=== PATIENT | male | born 1955 | race Caucasian/White ===

== ENCOUNTER 2018-09-22 13:57 | Emergency (ER) | payer OTHER ==
[2018-09-22] MEDS ORDERED: SODIUM CHLORIDE 0.9% 1,000 ML IV ONE (14:57)
--- NOTE | 2018-09-22 15:00 | ED Physician Documentation ---
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 He does have abdominal pain which she has had persistent for more than a year and he is on pain medication chronically for this. He denies any distention of his lower abdomen and he denies any nausea vomiting or diarrhea. He is chronically constipated from narcotic use. Review of Systems Constitutional: reports: Fever, Myalgias, Fatigue Eyes: denies: Decreased vision Ears: denies: Ear pain Nose: denies: Rhinorrhea / runny nose, Congestion Throat: denies: Sore throat Cardiac: denies: Chest pain / pressure, Palpitations Respiratory: denies: Dyspnea, Cough GI: reports: Abdominal Pain, Diarrhea. denies: Nausea, Vomiting : denies: Dysuria, Frequency Skin: denies: Rash Musculoskeletal: denies: Neck pain, Back pain, Extremity pain Neurologic: reports: Generalized weakness. 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, is currently in a trial treatment for those lung nodules - Allergies Allergies/Adverse Reactions: Allergies Allergy/AdvReac Type Severity Reaction Status Date / Time No Known Drug Allergies Allergy Verified 09/22/18 14:33 - Social History Does the pt smoke?: No Smoking Status: Never smoker Does the pt drink ETOH?: No Does the pt have substance abuse?: No PD ED PE NORMAL - Vitals Vital signs reviewed: Yes (tachy and hypertensive ) - General General: Alert and oriented X 3, No acute distress, Well developed/nourished - HEENT HEENT: Atraumatic, PERRL, EOMI, Other (dry mucous membranes ) - Neck Neck: Supple, no meningeal sign, No bony TTP - Cardiac Cardiac: No murmur, Other (tachy to 110) - Respiratory Respiratory: No respiratory distress, Clear bilaterally - Abdomen Abdomen: Soft, Other (mild general tenderness without gaurding or rebound) - Back Back: No CVA TTP, No spinal TTP - Derm Derm: Normal color, Warm and dry, No rash - Extremities Extremities: No deformity, No edema - Neuro Neuro: Alert and oriented X 3, creative manager 2-12 intact Eye Opening: Spontaneous Motor: Obeys Commands Verbal: Oriented GCS Score: 15 - Psych Psych: Normal mood, Normal affect Results - Vitals Vitals: Vital Signs - 24 hr 09/22/18 09/22/18 14:03 16:26 Temperature 37 C Heart Rate 113 H 95 Respiratory 18 16 Rate Blood Pressure 140/88 H 152/101 H O2 Saturation 96 99 Oxygen O2 Source Room air - Labs Labs: Laboratory Tests 09/22/18 09/22/18 09/22/18 15:30 15:30 15:30 WBC 14.6 H RBC 4.28 L Hgb 13.1 L Hct 38.7 L MCV 90.4 MCH 30.7 MCHC 34.0 RDW 13.3 Plt Count 147 MPV 8.7 Neut # (Auto) 13.1 H Lymph # (Auto) 0.2 L [place] # (Auto) 1.2 H Eos # (Auto) 0.0 Baso # (Auto) 0.0 Absolute Nucleated RBC 0.00 Nucleated RBC % 0.0 Sodium 130 L Potassium 4.0 Chloride 95 L Carbon Dioxide 25 Anion Gap 10.0 BUN 16 Creatinine 0.6 Estimated GFR (MDRD) 137 Glucose 141 H Calcium 8.8 Total Bilirubin 0.6 AST 36 ALT 28 Alkaline Phosphatase 67 Troponin I < 0.04 Total Protein 8.2 Albumin 3.9 Globulin 4.3 H Albumin/Globulin Ratio 0.9 L Lipase 20 L Urine Color Urine Clarity Urine pH Ur Specific [place] Urine Protein Urine Glucose (UA) Urine Ketones Urine Occult Blood Urine Nitrite Urine Bilirubin Urine Urobilinogen Ur Leukocyte Esterase Urine RBC Urine WBC Ur Squamous Epith Cells Urine Bacteria Ur Microscopic Review Urine Culture Comments 09/22/18 16:18 WBC RBC Hgb Hct MCV MCH MCHC RDW Plt Count MPV Neut # (Auto) Lymph # (Auto) [place] # (Auto) Eos # (Auto) Baso # (Auto) Absolute Nucleated RBC Nucleated RBC % Sodium Potassium Chloride Carbon Dioxide Anion Gap BUN Creatinine Estimated GFR (MDRD) Glucose Calcium Total Bilirubin AST ALT Alkaline Phosphatase Troponin I Total Protein Albumin Globulin Albumin/Globulin Ratio Lipase Urine Color YELLOW Urine Clarity CLEAR Urine pH 7.0 Ur Specific [place] 1.010 Urine Protein NEGATIVE Urine Glucose (UA) NEGATIVE Urine Ketones 15 H Urine Occult Blood SMALL H Urine Nitrite NEGATIVE Urine Bilirubin NEGATIVE Urine Urobilinogen 0.2 (NORMAL) Ur Leukocyte Esterase NEGATIVE Urine RBC 6-10 H Urine WBC 0-3 Ur Squamous Epith Cells RARE Squamous Urine Bacteria None Seen Ur Microscopic Review INDICATED Urine Culture Comments NOT INDICATED Procedures - IVC sono (time) 1455 Bedside IVC sono: IVC measures (cm) (1.07), IVC collapsed c insp (cm) (complete), Dehydration (est >1 liter deficit) PD MEDICAL DECISION MAKING - ED course Complexity details: considered differential, d/w patient, d/w family ED course: 62-year-old male undergoing therapy for a salivary duct tumor is on a experi mental protocol with a small molecule he has infused once a week. He has developed abdominal pain that is not new and he has a decreased urine volume. He is concerned that he is not able to urinate and is only passing a small amount of urine. He is exhausted from a car trip back up here and moving. An IV is begun he is administered saline. Departure - Departure Disposition: 01 Home, Self Care Clinical Impression: Dehydration Condition: Stable Instructions: ED Dehydration Follow-Up: Your, doctor [Other]
[2018-09-22 16:01] LABS: BASOPHILS % (AUTO) 0.2 %; EOSINOPHILS % (AUTO) 0.2 %; HGB - HEMOGLOBIN 13.1 g/dL (14.0-18.0); LYMPHOCYTES # (AUTO) 0.2 10^3/uL (1.5-3.5); LYMPHOCYTES % (AUTO) 1.6 %; MEAN CORPUSCULAR HEMOGLOBIN 30.7 pg (27.0-31.0); MEAN CORPUSCULAR VOLUME 90.4 fL (80.0-94.0); MEAN PLATELET VOLUME 8.7 fL (7.4-11.4); MONOCYTES # (AUTO) 1.2 10^3/uL (0.0-1.0); MONOCYTES % (AUTO) 8.3 %; NEUTROPHILS # (AUTO) 13.1 10^3/uL (1.5-6.6); NEUTROPHILS % (AUTO) 89.7 %; PLT - PLATELET COUNT 147 10^3/uL (130-450); RED BLOOD COUNT 4.28 10^6/uL (4.70-6.10); RED CELL DISTRIBUTION WIDTH 13.3 % (12.0-15.0); WHITE BLOOD COUNT 14.6 x10^3/uL (4.8-10.8)
[2018-09-22 16:19] LABS: ALBUMIN 3.9 g/dL (3.2-5.5); ALBUMIN/GLOBULIN RATIO 0.9 (1.0-2.2); BILIRUBIN,TOTAL 0.6 mg/dL (0.2-1.0); CALCIUM 8.8 mg/dL (8.5-10.3); CREATININE 0.6 mg/dL (0.6-1.2); TOTAL PROTEIN 8.2 g/dL (6.7-8.2)
[2018-09-22 16:40] LABS: BILIRUBIN,URINE NEGATIVE (NEGATIVE); GLUCOSE, URINE (UA) NEGATIVE (NEGATIVE); KETONES,URINE (UA) 15 mg/dL (NEGATIVE); LEUKOCYTE ESTERASE, URINE NEGATIVE (NEGATIVE); NITRITE,URINE NEGATIVE (NEGATIVE); OCCULT BLOOD,URINE SMALL (NEGATIVE); PROTEIN,URINE NEGATIVE (NEGATIVE); UROBILINOGEN,URINE 0.2 (NORMAL) E.U./dL (NORMAL)
[2018-09-22 16:47] LABS: CLARITY,URINE CLEAR (CLEAR)
[2018-09-22 16:48] LABS: BACTERIA,URINE None Seen /HPF (None Seen); SQUAMOUS EPITHELIAL CELL,UR RARE Squamous (<= Few)
[2018-09-22 17:32] VITALS: BP 133/93
== END 2018-09-22 17:33 | disposition home or self-care (01) ==
LOC: ED 13:57
DX: E86.0 Dehydration (principal); R39.198 Other difficulties with micturition; C08.9 Malignant neoplasm of major salivary gland, unspecified; C78.00 Secondary malignant neoplasm of unspecified lung
CPT/HCPCS: 36415; 80053; 81001; 81003; 83690; 84484; 85025; 87086; 96360; 99283

== ENCOUNTER 2018-09-24 10:52 | Observation (INO) | payer OTHER ==
[2018-09-24 11:48] LABS: BASOPHILS % (AUTO) 0.1 %; HGB - HEMOGLOBIN 13.9 g/dL (14.0-18.0); LYMPHOCYTES # (AUTO) 0.3 10^3/uL (1.5-3.5); MEAN CORPUSCULAR HEMOGLOBIN 30.3 pg (27.0-31.0); MEAN CORPUSCULAR HGB CONC 33.3 g/dL (32.0-36.0); MEAN CORPUSCULAR VOLUME 91.2 fL (80.0-94.0); MEAN PLATELET VOLUME 8.5 fL (7.4-11.4); MONOCYTES # (AUTO) 0.6 10^3/uL (0.0-1.0); MONOCYTES % (AUTO) 4.1 %; NEUTROPHILS # (AUTO) 13.6 10^3/uL (1.5-6.6); NEUTROPHILS % (AUTO) 93.8 %; PLT - PLATELET COUNT 181 10^3/uL (130-450); RED BLOOD COUNT 4.57 10^6/uL (4.70-6.10); RED CELL DISTRIBUTION WIDTH 13.5 % (12.0-15.0); WHITE BLOOD COUNT 14.5 x10^3/uL (4.8-10.8)
[2018-09-24 11:57] LABS: ALBUMIN/GLOBULIN RATIO 0.8 (1.0-2.2); BILIRUBIN,TOTAL 0.9 mg/dL (0.2-1.0); CALCIUM 9.2 mg/dL (8.5-10.3); CREATININE 1.1 mg/dL (0.6-1.2); TOTAL PROTEIN 9.3 g/dL (6.7-8.2)
--- NOTE | 2018-09-24 12:00 | ED Physician Documentation ---
PD HPI ABD PAIN - Stated complaint Stated Complaint: ABDOMINAL PAIN - Chief complaint Chief Complaint: Abd Pain - History obtained from History obtained from: Patient - History of Present Illness Timing - onset: Last night (The patient has had some abdominal fullness and lower abdominal cramping and pains with noting decreased urination though a feeling of bladder fullness over the last several days. He states he does have problems with constipation and not had a bowel movement since Monday which is 3 days ago. He was seen here 2 days ago with the symptoms though not so much the belly pain. He was felt to be dehydrated and had some IV fluids given. His urine did not show signs of infection. He continued same symptoms and then last night had an abrupt onset of right lower quadrant abdominal pain radiating to the back and this has persisted pretty significantly since the middle of the night. He took extra oral medication and says it somewhat controlled at this point. He declines further pain medicine here.) Timing - duration: Hours (7-8) Timing - details: Abrupt onset (He had an abrupt worsening of pain in the right lower quadrant last night and this has persisted. This is different and in addition to his general crampy pains from constipation.) Quality: Cramping (general for several days), Sharp (RLQ today) Location: RLQ Radiation: Right flank Worsened by: Position, Palpation. No: Breathing Associated symptoms: Constipation. No: Fever, Nausea, Vomiting, Diarrhea, Hematochezia Similar symptoms before: Has not had sx before (not this sharp abrupt pain; has had fullness/cramps with constipation in the past.) Recently seen: Emergency Dept Review of Systems Constitutional: denies: Fever Nose: denies: Rhinorrhea / runny nose, Congestion Throat: denies: Sore throat Respiratory: denies: Cough GI: reports: Abdominal Pain, Constipation. denies: Nausea, Vomiting, Diarrhea, Bloody / black stool : denies: Dysuria, Frequency PD PAST MEDICAL HISTORY - Past Medical History Cardiovascular: None Respiratory: None Neuro: None GI: Chronic constipation - Present Medications Home Medications: Ambulatory Orders Medication Instructions Recorded Confirmed Bisacodyl Supp [Dulcolax Supp] 10 mg NC DAILY PRN 09/24/18 09/24/18 Calcium Polycarbophil [Fiber-Lax] 1,875 mg PO DAILY 09/24/18 09/24/18 Ergocalciferol (Vitamin D2) 50 mcg PO DAILY 09/24/18 09/24/18 [Vitamin D2] Lisinopril 10 mg PO DAILY 09/24/18 09/24/18 Morphine Sulfate [Ms Contin] 0 mg PO Q8H 09/24/18 09/24/18 Naproxen Sodium [Aleve] 220 - 440 mg PO DAILY PRN 09/24/18 09/24/18 Polyethylene Glycol 3350 [Miralax] 17 gm PO DAILY PRN 09/24/18 09/24/18 Senna [Senokot] 8.6 mg PO DAILY 09/24/18 09/24/18 oxyCODONE [Roxicodone] 10 - 40 mg PO Q6H PRN 09/24/18 09/24/18 - Allergies Allergies/Adverse Reactions: Allergies Allergy/AdvReac Type Severity Reaction Status Date / Time No Known Drug Allergies Allergy Verified 09/24/18 10:59 - Social History Does the pt smoke?: No Smoking Status: Never smoker Does the pt drink ETOH?: No Does the pt have substance abuse?: No PD ED PE NORMAL - Vitals Vital signs reviewed: Yes - General General: Alert and oriented X 3, Well developed/nourished - HEENT HEENT: Pharynx benign - Neck Neck: Supple, no meningeal sign, No adenopathy - Cardiac Cardiac: RRR, No murmur - Respiratory Respiratory: Clear bilaterally - Abdomen Abdomen: Soft, Other (His abdomen is moderately generally distended with some tenderness diffusely. He is most tender in the right lower quadrant with localized guarding. Bowel sounds are increased and percussion of the abdomen is tympanitic. There is some mild right CVA tenderness. Femoral pulses are symmetric and normal. The legs have good color and capillary refill and there is good pulses in the feet.) - Male Male : Other (normal genitalia without tenderness. No scrotal swelling. ) - Rectal Rectal: Other (There are no hemorrhoids felt. Digital exam showed a fairly empty vault with some brown stool is guaiac negative. The prostate does not feel enlarged.) - Back Back: No CVA TTP - Derm Derm: Normal color, Warm and dry - Extremities Extremities: No tenderness to palpate, Normal ROM s pain, No edema, No calf tenderness / cord - Neuro Neuro: Alert and oriented X 3, No motor deficit, Normal speech Results - Vitals Vitals: Vital Signs - 24 hr 09/24/18 09/24/18 09/24/18 10:57 12:15 14:21 Temperature 36.1 C L Heart Rate 111 H 108 H 106 H Respiratory 20 16 18 Rate Blood Pressure 91/65 109/76 119/84 H O2 Saturation 97 98 96 09/24/18 17:37 Temperature Heart Rate 92 Respiratory 18 Rate Blood Pressure 115/82 H O2 Saturation 94 Oxygen O2 Source Room air - Labs Labs: Laboratory Tests 09/24/18 09/24/18 09/24/18 11:37 11:37 12:01 WBC 14.5 H RBC 4.57 L Hgb 13.9 L Hct 41.7 L MCV 91.2 MCH 30.3 MCHC 33.3 RDW 13.5 Plt Count 181 MPV 8.5 Neut # (Auto) 13.6 H Lymph # (Auto) 0.3 L [place] # (Auto) 0.6 Eos # (Auto) 0.0 Baso # (Auto) 0.0 Absolute Nucleated RBC 0.00 Nucleated RBC % 0.0 Sodium 135 Potassium 4.3 Chloride 99 L Carbon Dioxide 25 Anion Gap 11.0 BUN 17 Creatinine 1.1 Estimated GFR (MDRD) 68 L Glucose 132 H Calcium 9.2 Total Bilirubin 0.9 AST 39 ALT 30 Alkaline Phosphatase 81 Total Protein 9.3 H Albumin 4.0 Globulin 5.3 H Albumin/Globulin Ratio 0.8 L Lipase 19 L Urine Color DARK YELLOW Urine Clarity HAZY Urine pH 6.0 Ur Specific [place] 1.025 Urine Protein 30 H Urine Glucose (UA) NEGATIVE Urine Ketones 40 H Urine Occult Blood TRACE-INTA Urine Nitrite NEGATIVE Urine Bilirubin NEGATIVE Urine Urobilinogen 0.2 (NORMAL) Ur Leukocyte Esterase NEGATIVE Urine RBC 0-5 Urine WBC 0-3 Ur Squamous Epith Cells RARE Squamous Urine Bacteria Rare Urine Casts 3-5 Granular Casts Urine Mucus Few Strands Ur Microscopic Review INDICATED Urine Culture Comments NOT INDICATED PD MEDICAL DECISION MAKING - ED course Complexity details: reviewed old records, reviewed results (He does not have constipation with a lot of stool in the right lower quadrant particularly in an obstruction pattern mildly in the small bowel. However there is enlargement and swelling of the appendix consistent with acute appendicitis.), re-evaluated patient (The patient is apprised of his results. He is preferring local treatment with general surgery here. I will contact the [facility] to update them.He last had Jell-O at 8 this morning. He had a sip of water about an hour ago.), considered differential (He does have history of constipation with pains but now has localized right lower quadrant pain. Consider diverticulitis, appendicitis, kidney stone, UTI, local perforation from constipation or bowel obstruction.), d/w patient, d/w database reporting consultant (I did inform Dr. Cantu at the [facility] who is on-call about the appendicitis. Since the patient is on a cancer study drug, all medical problems need to get reported to them.), other (Consult surgery Dr. Bravo.) Departure - Departure Disposition: ED Transfer to [facility] Clinical Impression: Abdominal pain Qualifiers: Abdominal location: right lower quadrant Qualified Code(s): R10.31 - Right lower quadrant pain Appendicitis Qualifiers: Appendicitis type: acute appendicitis Acute appendicitis type: with localized peritonitis Appendicitis gangrene presence: without gangrene Appendicitis perforation presence: without perforation Appendicitis abscess presence: without abscess Qualified Code(s): K35.30 - Acute appendicitis with localized peritonitis, without perforation or gangrene Constipation Qualifiers: Constipation type: drug induced constipation Qualified Code(s): K59.03 - Drug induced constipation Condition: Stable Record reviewed to determine appropriate education?: Yes Discharge Date/Time: 09/24/18 18:59
[2018-09-24 12:21] LABS: GLUCOSE, URINE (UA) NEGATIVE (NEGATIVE); KETONES,URINE (UA) 40 mg/dL (NEGATIVE); LEUKOCYTE ESTERASE, URINE NEGATIVE (NEGATIVE); NITRITE,URINE NEGATIVE (NEGATIVE); OCCULT BLOOD,URINE TRACE-INTA (NEGATIVE); PROTEIN,URINE 30 mg/dL (NEGATIVE); UROBILINOGEN,URINE 0.2 (NORMAL) E.U./dL (NORMAL)
[2018-09-24 12:25] LABS: BILIRUBIN,URINE NEGATIVE (NEGATIVE); CLARITY,URINE HAZY (CLEAR); ICTOTEST,URINE NEGATIVE
[2018-09-24 12:32] LABS: BACTERIA,URINE Rare /HPF (None Seen); CASTS, URINE 3-5 Granular Casts /LPF; MUCUS,URINE Few Strands; RBC,URINE 0-5 /HPF (0-5); SQUAMOUS EPITHELIAL CELL,UR RARE Squamous (<= Few)
[2018-09-24] MEDS ORDERED: MINERAL OIL ENEMA 133 ML BOTTLE RC STA (13:18)
[2018-09-24] MEDS ORDERED: METHYLNALTREXONE 12 MG/0.6 ML VIAL SUBQ ONE (13:43)
--- NOTE | 2018-09-24 13:53 | CT Report ---
Reason: abd pain abrupt last night Procedure Date: 09/24/2018 Accession Number: [id number] / [id number] Procedure: CT - Abdomen/Pelvis WO CPT Code: FULL RESULT: EXAM: CT ABDOMEN AND PELVIS (CT KUB) EXAM DATE: 09/24/2018 01:05 PM. CLINICAL HISTORY: Abdominal pain abrupt last night. Pain in the bladder area. COMPARISONS: None. TECHNIQUE: Routine axial helical CT imaging was performed through the abdomen and pelvis without IV contrast. Reconstructions: Coronal and sagittal. In accordance with CT protocol optimization, one or more of the following dose reduction techniques were utilized for this exam: automated exposure control, adjustment of mA and/or KV based on patient size, or use of iterative reconstructive technique. FINDINGS: Lung Bases: There are multiple bilateral pulmonary nodules ranging in size from several millimeters, up to the largest measuring 3.2 cm in size in the left lower lung. What appears to be the lower margin of drowned lung segment is noted medial posterior right lower lung, associated with staple lines. There is pleural-based mass and/or thickening noted in the medial posterior costophrenic angle, contiguous with this process. Right Kidney/Ureter: No stones, hydronephrosis, or hydroureter. No perinephric fat stranding. Left Kidney/Ureter: No stones, hydronephrosis, or hydroureter. No perinephric fat stranding. Other Solid Organs: Noncontrast images of the solid organs are grossly unremarkable. Pancreatic atrophy is noted. Gallbladder/Bile Ducts: Unremarkable. Peritoneal Cavity: There is moderate stool burden noted within the cecum and ascending colon. The appendix is enlarged measuring upwards of 12 mm in diameter and extends into the low right pelvis to the level of the bladder. There is a small amount of stranding inflammatory change along the appendix and possible small amount of free fluid in the right cul-de-sac. Pelvic Organs: No bladder stones or wall thickening. Noncontrast images of the visualized pelvic organs are unremarkable. Vasculature: Unremarkable. Other: There are displaced fractures of the right posterior lateral 9th and 10th ribs age indeterminate. There is callus formation along nondisplaced 8th rib fracture suggesting these fractures are subacute. No additional fractures appreciated. Fat-containing inguinal hernias are noted. IMPRESSION: 1. Findings consistent with uncomplicated appendicitis. No urinary tract stones or obstruction. 2. Multiple bilateral pulmonary nodules as described. Probable postsurgical changes noted in the right posterior costophrenic sulcus with an appearance of pleural-based mass and/or thickening/rounded atelectasis. Correlate with medical history. 3. Mildly displaced fractures of the right posterior lateral 9th and 10th ribs, possibly subacute. RADIA
[2018-09-24] MEDS ORDERED: ONDANSETRON 4 MG/2 ML VIAL IVP STA (14:06)
[2018-09-24] MEDS ORDERED: HYDROmorphone 1 MG/ML CARPUJECT IVP STA (14:06)
[2018-09-24] MEDS ORDERED: SODIUM CHLORIDE 0.9% 1,000 ML IV ONE (14:07)
[2018-09-24] MEDS ORDERED: cefOXitin 2 GM in SODIUM CHLORIDE 0.9% MINIBAG 100 ML IV STA (14:24)
--- NOTE | 2018-09-24 18:41 | ANESTHESIA ---
Pre-Anesthesia VS, & Labs - Diagnosis acute appendicitis - Procedure laparoscopic appendectomy Vital Signs: Temp Pulse Resp BP Pulse Ox 36.1 C L 92 18 115/82 H 94 09/24/18 10:57 09/24/18 17:37 09/24/18 17:37 09/24/18 17:37 09/24/18 17:37 Height 5 ft 10 in Weight (kg) 83.915 kg Body Mass Index 26.5 - NPO >8 hours - Lab Results Current Lab Results: Laboratory Tests 09/24/18 11:37: Sodium 135, Potassium 4.3, Chloride 99 L, Carbon Dioxide 25, Anion Gap 11.0, BUN 17, Creatinine 1.1, Estimated GFR (MDRD) 68 L, Glucose 132 H , Calcium 9.2, Total Bilirubin 0.9, AST 39, ALT 30, Alkaline Phosphatase 81, Total Protein 9.3 H, Albumin 4.0, Globulin 5.3 H, Albumin/Globulin Ratio 0.8 L, Lipase 19 L 09/24/18 11:37: WBC 14.5 H, RBC 4.57 L, Hgb 13.9 L, Hct 41.7 L, MCV 91.2, MCH 30.3, MCHC 33.3, RDW 13.5, Plt Count 181, MPV 8.5, Neut # (Auto) 13.6 H, Lymph # (Auto) 0.3 L, [place] # (Auto) 0.6, Eos # (Auto) 0.0, Baso # (Auto) 0.0, Absolute Nucleated RBC 0.00, Nucleated RBC % 0.0 Lab results reviewed: Yes Fish Bones: 09/24/18 11:37 09/24/18 11:37 Home Medications and Allergies Home Medications: Ambulatory Orders Bisacodyl Supp [Dulcolax Supp] 10 mg RI DAILY PRN 09/24/18 Calcium Polycarbophil [Fiber-Lax] 1,875 mg PO DAILY 09/24/18 Ergocalciferol (Vitamin D2) [Vitamin D2] 50 mcg PO DAILY 09/24/18 Lisinopril 10 mg PO DAILY 09/24/18 Morphine Sulfate [Ms Contin] 0 mg PO Q8H 09/24/18 Naproxen Sodium [Aleve] 220 - 440 mg PO DAILY PRN 09/24/18 Polyethylene Glycol 3350 [Miralax] 17 gm PO DAILY PRN 09/24/18 Senna [Senokot] 8.6 mg PO DAILY 09/24/18 oxyCODONE [Roxicodone] 10 - 40 mg PO Q6H PRN 09/24/18 Bisacodyl Supp [Dulcolax Supp] 10 mg RI DAILY PRN 09/24/18 Calcium Polycarbophil [Fiber-Lax] 1,875 mg PO DAILY 09/24/18 Ergocalciferol (Vitamin D2) [Vitamin D2] 50 mcg PO DAILY 09/24/18 Lisinopril 10 mg PO DAILY 09/24/18 Morphine Sulfate [Ms Contin] 0 mg PO Q8H 09/24/18 Naproxen Sodium [Aleve] 220 - 440 mg PO DAILY PRN 09/24/18 Polyethylene Glycol 3350 [Miralax] 17 gm PO DAILY PRN 09/24/18 Senna [Senokot] 8.6 mg PO DAILY 09/24/18 oxyCODONE [Roxicodone] 10 - 40 mg PO Q6H PRN 09/24/18 Allergies/Adverse Reactions: Allergies Allergy/AdvReac Type Severity Reaction Status Date / Time No Known Drug Allergies Allergy Verified 09/24/18 10:59 Anes History & Medical History - Anesthetic History Anesthesia Complications: reports: No previous complications Family history of Anesthesia Complications: Denies Family history of Malignant Hyperthermia: Denies - Medical History Cardiovascular: reports: None Pulmonary: reports: None Gastrointestinal: reports: Chronic constipation Neuro: reports: None Smoking Status: Never smoker - Surgical History Eyes Ears Nose Throat (EENT): Other (Radical neck @R) Cardiothoracic: Other (VATS) Exam General: Alert, Oriented x3, Cooperative Dental: WNL Mouth Openin Fingerbreadth Neck Mobility: Normal Mallampati classification: II Thyromental Distance: 4-6 cm Respiratory: Lungs clear, Normal breath sounds, No respiratory distress Cardiovascular: Regular rate Neurological: Normal speech Mental/Cognitive Status: Alert/Oriented X3, Normal for patient Cognitive Status: Within normal limits Plan Anesthesia Type: General Consent for Procedure(s) Verified and Reviewed: Yes Code Status: Attempt Resuscitation ASA classification: 2-Mild systemic disease Is this case an emergency?: Yes
[2018-09-24] MEDS ORDERED: BUPIVACAINE 0.25%-EPI 1:200000 PF 30 ML VIAL ONE (18:57)
[2018-09-24] MEDS ORDERED: LIDOCAINE-MPF 2% 5 ML VIAL IM ONE (19:30)
[2018-09-24] MEDS ORDERED: PROPOFOL 200 MG/20 ML VIAL IVP ONE (19:30)
[2018-09-24] MEDS ORDERED: MIDAZOLAM 2 MG/2 ML VIAL IVP ONE (19:30)
[2018-09-24] MEDS ORDERED: fentaNYL 100 MCG/2 ML VIAL IVP ONE (19:30)
[2018-09-24] MEDS ORDERED: DEXAMETHASONE 4 MG/ML VIAL IVP ONE (19:30)
[2018-09-24] MEDS ORDERED: GLYCOPYRROLATE 1 MG/5 ML VIAL IVP ONE (19:30)
[2018-09-24] MEDS ORDERED: NEOSTIGMINE 1 MG/1 ML 10 ML MDV IVP ONE (19:30)
[2018-09-24] MEDS ORDERED: ONDANSETRON 4 MG/2 ML VIAL IVP ONE (19:30)
[2018-09-24] MEDS ORDERED: BUPIVACAINE 0.25%-EPI 1:200000 PF 10 ML VIAL SUBQ ONE ×2 (19:43)
[2018-09-24] MEDS ORDERED: LACTATED RINGERS 1,000 ML IV ONE ×2 (20:12→20:14)
[2018-09-24] MEDS ORDERED: ACETAMINOPHEN 325 MG TABLET PO PRN (20:18)
[2018-09-24] MEDS ORDERED: ONDANSETRON 4 MG/2 ML VIAL IVP PRN (20:18)
[2018-09-24] MEDS ORDERED: ZOLPIDEM 5 MG TABLET PO PRN (20:18)
[2018-09-24] MEDS ORDERED: SODIUM CHLORIDE FLUSH 0.9% 10 ML SYRINGE IVP PRN (20:18)
[2018-09-24] MEDS ORDERED: HYDROmorphone 0.5 MG/0.5 ML SYRINGE IVP PRN (20:18)
--- NOTE | 2018-09-24 20:18 | IMMEDIATE POSTOPERATIVE NOTE ---
Immediate Postoperative Note - Procedure Note Procedure Date: 09/24/18 Pre-Op Diagnosis: acute appendicitis Procedure: lap appy Post-Op Diagnosis: perforated appendicitis Primary Surgeon: priscilla Anesthesia Type: General ET tube Complications: No complications Estimated Blood Loss (in cc): 5 Specimens and Cultures: appendix Plan of Care: expectant
[2018-09-24] MEDS ORDERED: D5NS W/20 MEQ KCL 1,000 ML IV SCH (21:00)
[2018-09-24] MEDS: cefOXitin 2 GM in SODIUM CHLORIDE 0.9% MINIBAG 100 ML IV SCH (21:39)
[2018-09-24] MEDS: HYDROcod/ACETAM 5/325 MG TABLET PO PRN (23:05)
[2018-09-25] MEDS: SODIUM CHLORIDE FLUSH 0.9% 10 ML SYRINGE IVP SCH ×2 (01:30→08:15)
--- NOTE | 2018-09-25 02:41 | OPERATIVE REPORT ---
DATE OF SERVICE: 09/24/2018 Physician: Anthony Bravo MD PREOPERATIVE DIAGNOSIS: Acute appendicitis. POSTOPERATIVE DIAGNOSIS: Perforated gangrenous appendicitis. INDICATIONS: This is a 62-year-old man who presented with 1 day of acute worsening of pain that had been present overall for the past 3 days. He was diagnosed with acute uncomplicated appendicitis. 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 However, he has mounted a normal leukocytosis in response to the disease. PROCEDURE IN DETAIL: The risks and benefits were explained to the patient and he agreed to the procedure. He was taken to the operating room and placed under general anesthesia and intubated. The abdomen was prepped and draped. A timeout was performed. Everyone in the room agreed to the procedure. We began by making a 12 mm umbilical incision. He had a small natural defect at the umbilicus that we enlarged. I then inserted a saran trocar and secured it in place. We then insufflated the abdomen to 15 mmHg. I made a gross inspection of the abdominal cavity. The right lower quadrant had some purulent and feculent material. The appendix was grossly inflamed with patchy areas of gangrene and an obvious area of necrosis and perforation at the base. The rest of the abdomen, however, was free of infection. We then inserted two 5 mm trocars under vision from the camera; one below the umbilicus and one above the pubic symphysis. These were inserted under vision from the camera. A window was made at the base of the appendix and a blue load of the CIERRA stapler was used to transect the appendix at the cecum, just below the area of perforation, making sure that the tiffani were on healthy tissue. The mesoappendix was then taken using white load of the CIERRA stapler. The appendix was placed in an EndoCatch bag and removed and sent to pathology. The right lower quadrant was lavaged until all of the purulent and feculent material was removed. We elected not to leave a drain in this case since there was no continuing source of infection. The three trocars were then removed under vision from the camera, after final inspection of the staple lines to ensure no residual bleeding. The fascia of the umbilical port site was closed using a 0 Vicryl and the skin over all 3 incisions was closed using 4-0 Monocryl and Dermabond. This terminated the procedure. The patient tolerated it well. He was extubated in the operating room and taken to recovery in stable condition. The instrument and lap counts were correct. Dr. Bravo was present throughout the entire procedure. SPECIMEN: Appendix. COMPLICATIONS: None. ESTIMATED BLOOD LOSS: 5 mL PLAN: The patient is to stay overnight due to the severity of disease with possible discharge in the morning. TD: 09/24/2018 20:24 MTDD
[2018-09-25] MEDS: cefOXitin 2 GM in SODIUM CHLORIDE 0.9% MINIBAG 100 ML IV SCH (05:41)
[2018-09-25] MEDS: HYDROcod/ACETAM 5/325 MG TABLET PO PRN (05:44)
[2018-09-25 07:33] VITALS: BP 121/81
[2018-09-25] MEDS ORDERED: ENOXAPARIN 40 MG/0.4 ML SYRINGE SUBQ SCH (09:00)
[2018-09-25] MEDS ORDERED: POLYETHYLENE GLYCOL 3350 17 GM PACKET PO SCH (09:00)
--- NOTE | 2018-09-25 10:48 | DISCHARGE SUMMARY ---
"Discharge Summary Admit Date: 09/24/18 Discharge Date: 09/25/18 Discharging Provider: priscilla Code Status: Attempt Resuscitation Condition at Discharge: Good Discharge Disposition: 01 Home, Self Care - DIAGNOSES Admission Diagnoses: appendicitis - HPI History of Present Illness: 62 yo man presented to the ER with signs and symptoms of appendicitis. 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 - CONSULTS | PROCEDURES Procedures: lap appy - HOSPITAL COURSE Hospital Course: Pt underwent a lap appy for perforated appendicitis. He had purlulent/feculent material in the RLQ and a gangrenous appendix. His postop course was uncomplicated and he was discharged home the next morning. His pain was much improved and he felt it would be well-controlled on the narcotics he already has. He will need to take antibiotics for an additional 3 days. - ALLERGIES Allergies/Adverse Reactions: Allergies Allergy/AdvReac Type Severity Reaction Status Date / Time No Known Drug Allergies Allergy Verified 09/24/18 10:59 - MEDICATIONS Home Medications: Ambulatory Orders Medication Instructions Recorded Confirmed Bisacodyl Supp [Dulcolax Supp] 10 mg [place] DAILY PRN 09/24/18 09/24/18 Calcium Polycarbophil [Fiber-Lax] 1,875 mg PO DAILY 09/24/18 09/24/18 Ergocalciferol (Vitamin D2) 50 mcg PO DAILY 09/24/18 09/24/18 [Vitamin D2] Lisinopril 10 mg PO DAILY 09/24/18 09/24/18 Morphine Sulfate [Ms Contin] 0 mg PO Q8H 09/24/18 09/24/18 Naproxen Sodium [Aleve] 220 - 440 mg PO DAILY PRN 09/24/18 09/24/18 Polyethylene Glycol 3350 [Miralax] 17 gm PO DAILY PRN 09/24/18 09/24/18 Senna [Senokot] 8.6 mg PO DAILY 09/24/18 09/24/18 oxyCODONE [Roxicodone] 10 - 40 mg PO Q6H PRN 09/24/18 09/24/18 Home Medications Other | Comments: Augmentin - PHYSICAL EXAM AT DISCHARGE General Appearance: positive: No acute distress Eyes Bilateral: positive: Normal inspection ENT: positive: ENT inspection nml Neck: positive: Nml inspection Respiratory: positive: Chest non-tender Abdomen: positive: Non-tender Back: positive: Nml inspection Skin: positive: Color nml Extremities: positive: Non-tender Neurologic/Psychiatric: positive: Oriented x3 - LABS Result Diagrams: 09/24/18 11:37 09/24/18 11:37 - DIAGNOSTIC IMAGING Diagnostic Imaging Results: Final report reviewed - FOLLOW UP Follow Up: surgery clinic 1 week - TIME SPENT Time Spent in Discharge (Minutes): 30"
--- NOTE | 2018-09-25 10:56 | Discharge Plan ---
Discharge Plan Disposition: Home, Self Care Condition: Good Prescriptions: Amox/Clav 875/125 [Augmentin] 1 each PO Q8HR 3 Days #9 tablet Diet: Regular Activity Restrictions: Additional Comments (no heavy lifting) Shower Restrictions: No Driving Restrictions: Yes Instruction Topics: Appendectomy Laparoscopic Dc Additional Instructions or Follow Up instructions: surgery clinic 1 week No Smoking: If you smoke, Please STOP! Call for help. Follow-up with: Provider,Other [Primary Care Provider] -
== END 2018-09-25 11:13 | disposition home or self-care (01) ==
LOC: ED 10:52 → SDS 19:46 → OBS 20:18
PROVIDERS: ADMIT Surgery; ATTEND Surgery
PROC: 0DTJ4ZZ Resection of Appendix, Percutaneous Endoscopic Approach (ICD-10-PCS; principal; 2018-09-24 18:45)
DX: K35.31 Acute appendicitis with localized peritonitis and gangrene, without perforation (principal); C08.9 Malignant neoplasm of major salivary gland, unspecified; C79.9 Secondary malignant neoplasm of unspecified site; K59.03 Drug induced constipation; T40.2X5D Adverse effect of other opioids, subsequent encounter
CPT/HCPCS: 36415; 74176; 80053; 81001; 81003; 83690; 85025; 87086; 96361; 96365; 96372; 96375; 99283; 99284

== ENCOUNTER 2018-09-25 20:35 | Inpatient (IN) | payer OTHER ==
[2018-09-25] MEDS ORDERED: METHYLNALTREXONE 12 MG/0.6 ML VIAL SUBQ ONE (20:59)
[2018-09-25] MEDS ORDERED: SODIUM CHLORIDE 0.9% 1,000 ML IV ONE ×2 (20:59→23:51)
--- NOTE | 2018-09-25 21:02 | ED Physician Documentation ---
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 He is been having problems with opioid-induced constipation and recently was seen here and found to have appendicitis. Despite having the appendix addressed he still has not had a bowel movement and has abdominal fullness. Today he started vomiting with some biliary emesis and nausea and decreased appetite.) Review of Systems Ten Systems: 10 systems reviewed and negative Constitutional: reports: Fatigue. denies: Fever, Chills GI: reports: Abdominal Pain, Nausea, Vomiting, Constipation. denies: Diarrhea, Hematemesis, Bloody / black stool PD PAST MEDICAL HISTORY - Past Medical History Cardiovascular: None Respiratory: None Neuro: None GI: Chronic constipation - Past Surgical History Cardiovascular: Other (VATS) HEENT: Other (Radical neck @R) - Present Medications Home Medications: Ambulatory Orders Medication Instructions Recorded Confirmed RX: Bisacodyl Supp [Dulcolax Supp] 10 mg [place] DAILY PRN 09/24/18 09/24/18 RX: Calcium Polycarbophil 1,875 mg PO DAILY 09/24/18 09/24/18 [Fiber-Lax] RX: Ergocalciferol (Vitamin D2) 50 mcg PO DAILY 09/24/18 09/24/18 [Vitamin D2] RX: Lisinopril 10 mg PO DAILY 09/24/18 09/24/18 RX: Morphine Sulfate [Ms Contin] 60 mg PO Q8HR 09/24/18 09/26/18 RX: Naproxen Sodium [Aleve] 220 - 440 mg PO DAILY PRN 09/24/18 09/24/18 RX: Polyethylene Glycol 3350 17 gm PO DAILY PRN 09/24/18 09/24/18 [Miralax] RX: Senna [Senokot] 8.6 mg PO DAILY 09/24/18 09/24/18 RX: oxyCODONE [Roxicodone] 10 - 40 mg PO Q6H PRN 09/24/18 09/24/18 Amox/Clav 875/125 [Augmentin] 1 each PO Q8HR 3 Days #9 tablet 09/25/18 RX: Acetaminophen [Tylenol] 650 mg PO Q4HR PRN tablet 09/25/18 RX: HYDROcod/ACETAM 5/325 [[place] 1 tab PO Q4HR PRN tablet 09/25/18 5/325] RX: Polyethylene Glycol 3350 17 gm PO DAILY packet 09/25/18 [Miralax] Morphine Sulfate ER [Ms Contin] 30 mg PO Q8HR 09/26/18 09/26/18 RX: Morphine ER 15 mg PO 2200 09/26/18 09/26/18 - Allergies Allergies/Adverse Reactions: Allergies Allergy/AdvReac Type Severity Reaction Status Date / Time No Known Drug Allergies Allergy Verified 09/24/18 10:59 - Social History Does the pt smoke?: No Smoking Status: Never smoker Does the pt drink ETOH?: No Does the pt have substance abuse?: No - Family History Family history: reports: Non contributory PD ED PE NORMAL - Vitals Vital signs reviewed: Yes - General General: Alert and oriented X 3, No acute distress - HEENT HEENT: PERRL, EOMI - Neck Neck: Supple, no meningeal sign, No bony TTP - Cardiac Cardiac: RRR, No murmur - Respiratory Respiratory: No respiratory distress, Clear bilaterally - Abdomen Abdomen: Other (Normal bowel tones, slightly distended but nontender.) - Rectal Rectal: Other (No stool in the vault, enema placed during examination.) - Back Back: No CVA TTP, No spinal TTP - Derm Derm: Normal color, No rash - Extremities Extremities: No deformity, No tenderness to palpate - Neuro Neuro: Alert and oriented X 3, Normal speech - Psych Psych: Normal mood, Normal affect Results - Vitals Vitals: Vital Signs - 24 hr 09/25/18 09/25/18 09/25/18 20:40 21:31 22:20 Temperature 37 C Heart Rate 120 H 120 H Respiratory 18 18 17 Rate Blood Pressure 152/104 H 164/117 H O2 Saturation 97 97 09/25/18 09/26/18 09/26/18 23:09 00:00 01:09 Temperature Heart Rate 118 H 109 H Respiratory 17 17 17 Rate Blood Pressure 171/114 H 160/119 H 164/114 H O2 Saturation 97 97 Oxygen O2 Source Room air - Labs Labs: Laboratory Tests 09/25/18 09/25/18 09/26/18 21:28 21:28 01:45 WBC 12.9 H RBC 4.24 L Hgb 12.8 L Hct 38.5 L MCV 90.8 MCH 30.1 MCHC 33.1 RDW 13.4 Plt Count 173 MPV 8.7 Neut # (Auto) 11.8 H Lymph # (Auto) 0.5 L [place] # (Auto) 0.6 Eos # (Auto) 0.0 Baso # (Auto) 0.0 Absolute Nucleated RBC 0.00 Nucleated RBC % 0.0 Sodium 133 L Potassium 3.6 Chloride 95 L Carbon Dioxide 26 Anion Gap 12.0 BUN 19 Creatinine 0.9 Estimated GFR (MDRD) 86 L Glucose 114 H Lactic Acid 0.9 Calcium 9.0 Total Bilirubin 0.5 AST 28 ALT 24 Alkaline Phosphatase 63 Total Protein 8.4 H Albumin 3.3 Globulin 5.1 H Albumin/Globulin Ratio 0.6 L Lipase 24 - Rads (name of study) Acute abd XR Radiology: EMP read contemporaneously (Persistent dilated small bowel with air- fluid levels and gaseous distention of the right colon likely representing ileus.) PD MEDICAL DECISION MAKING - ED course ED course: This is a 62-year-old gentleman on chronic narcotics with metastatic cancer who resents never having a bowel movement around an appendectomy. Given the location of the stool ball I suspect the stool ball in the right lower quadrant actually causes appendicitis. On initial examination there was no fecal impaction within his fingers with. An enema was placed, but looking at the x- ray I do not expect that to help much since the blockage seems to be in the cec um. Spoke with the on-call surgeon, Dr. Bravo who did his surgery who says it is fine to treat him with oral laxatives as a trial. He was trialling magnesium citrate and and lactulose at shift change. Care to Dr Barksdale witht he plan that if he has a good BM and feels better, can be discharged, but if he needs prolonged treatment / has lack of success he will talk with the hospitalist for inpt mgt of post op ileus. Departure - Departure Disposition: [facility] DC/Xfer Clinical Impression: Postoperative ileus Constipation Qualifiers: Constipation type: drug induced constipation Qualified Code(s): K59.03 - Drug induced constipation Abdominal pain Qualifiers: Abdominal location: lower abdomen, unspecified Qualified Code(s): R10.30 - Lower abdominal pain, unspecified Condition: Fair Discharge Date/Time: 09/26/18 02:55
[2018-09-25 21:39] LABS: BASOPHILS % (AUTO) 0.1 %; EOSINOPHILS % (AUTO) 0.2 %; HGB - HEMOGLOBIN 12.8 g/dL (14.0-18.0); LYMPHOCYTES # (AUTO) 0.5 10^3/uL (1.5-3.5); LYMPHOCYTES % (AUTO) 3.6 %; MEAN CORPUSCULAR HEMOGLOBIN 30.1 pg (27.0-31.0); MEAN CORPUSCULAR HGB CONC 33.1 g/dL (32.0-36.0); MEAN CORPUSCULAR VOLUME 90.8 fL (80.0-94.0); MEAN PLATELET VOLUME 8.7 fL (7.4-11.4); MONOCYTES # (AUTO) 0.6 10^3/uL (0.0-1.0); MONOCYTES % (AUTO) 4.8 %; NEUTROPHILS # (AUTO) 11.8 10^3/uL (1.5-6.6); NEUTROPHILS % (AUTO) 91.3 %; PLT - PLATELET COUNT 173 10^3/uL (130-450); RED BLOOD COUNT 4.24 10^6/uL (4.70-6.10); RED CELL DISTRIBUTION WIDTH 13.4 % (12.0-15.0); WHITE BLOOD COUNT 12.9 x10^3/uL (4.8-10.8)
[2018-09-25] MEDS ORDERED: LACTULOSE 10 GM /15 ML UDC PO STA (21:42)
[2018-09-25] MEDS ORDERED: MAGNESIUM CITRATE 296 ML BOTTLE PO STA (21:42)
--- NOTE | 2018-09-25 21:44 | XRAY Report ---
Reason: obstipation s/p appendectomy Procedure Date: 09/25/2018 Accession Number: [id number] / [id number] Procedure: XR - Abdomen Acute CPT Code: FULL RESULT: EXAM: ABDOMINAL SERIES AND PA CHEST EXAM DATE: 09/25/2018 09:21 PM. CLINICAL HISTORY: Obstipation s/p appendectomy. COMPARISON: ABDOMEN/PELVIS W/O 09/24/2018 1:03 PM. TECHNIQUE: 2 views abdomen and 1 view chest. FINDINGS: CHEST: Lungs/Pleura: There are 2 dominant masses in the left lung. Larger mass measures 4 cm in diameter. There is consolidation of the right lung base. Mediastinum: Heart size is within normal limits. There is mild to moderate aortic tortuosity. ABDOMEN: Bowel Gas Pattern: There are multiple air-fluid levels. There is dilated gas filled colon and small bowel. There is stool in the right colon. The left colon appears nondilated. Appearance is similar to the recent CT scan. Free Air: None. Other: None. IMPRESSION: 1. Persistent dilated small bowel with air-fluid levels and gaseous distention of the right colon. Similar to CT of 09/24/2018. Most likely representing ileus. RADIA
[2018-09-25 21:52] LABS: ALBUMIN 3.3 g/dL (3.2-5.5); ALBUMIN/GLOBULIN RATIO 0.6 (1.0-2.2); BILIRUBIN,TOTAL 0.5 mg/dL (0.2-1.0); CREATININE 0.9 mg/dL (0.6-1.2); TOTAL PROTEIN 8.4 g/dL (6.7-8.2)
[2018-09-25] MEDS ORDERED: HYDROmorphone 1 MG/ML CARPUJECT IVP STA (22:12)
[2018-09-25] MEDS ORDERED: ONDANSETRON 4 MG/2 ML VIAL IVP STA ×2 (22:12→23:41)
[2018-09-25] MEDS ORDERED: KETOROLAC 30 MG/ML VIAL IVP STA (22:12)
[2018-09-26] MEDS ORDERED: ONDANSETRON 4 MG/2 ML VIAL IVP PRN (01:51)
--- NOTE | 2018-09-26 02:23 | CT Report ---
Reason: post op pain and vomiting Procedure Date: 09/26/2018 Accession Number: [id number] / [id number] Procedure: CT - Abdomen/Pelvis WO CPT Code: FULL RESULT: EXAM: CT ABDOMEN AND PELVIS EXAM DATE: 09/26/2018 02:09 AM. CLINICAL HISTORY: Post op pain and vomiting. COMPARISONS: ABDOMEN/PELVIS W/O 09/24/2018 1:03 PM. TECHNIQUE: Routine helical CT imaging was performed through the abdomen and pelvis. IV contrast: None. Enteric contrast: No. Reconstructions: Coronal and sagittal. In accordance with CT protocol optimization, one or more of the following dose reduction techniques were utilized for this exam: automated exposure control, adjustment of mA and/or KV based on patient size, or use of iterative reconstructive technique. FINDINGS: Lung Bases: Stable postoperative changes in the right lower lobe, volume loss in the right hemithorax, and widespread pulmonary nodules measuring up to 3.2 cm. Liver: Normal. No masses. Gallbladder/Bile Ducts: Unremarkable. Spleen: Normal. Pancreas: Normal. Adrenal Glands: Normal. Kidneys: Normal. No masses or hydronephrosis. Peritoneal Cavity/Bowel: Postoperative changes of appendectomy, with small amount of free intraperitoneal gas. Diffuse dilatation of the stomach and small bowel, without evidence of a transition point, likely representing a postoperative ileus. Pelvic Organs: Small amount of gas in the urinary bladder. No evidence of a pelvic abscess. Vasculature: No aneurysms or other significant abnormality. Bones: No significant abnormality. Other: None. IMPRESSION: Postoperative changes of appendectomy. Dilatation of the stomach and diffuse small bowel dilatation, likely representing postoperative ileus. Small amounts of postoperative gas. Stable abnormalities in the visualized thorax. RADIA
[2018-09-26] MEDS: PIPERACILLIN/TAZOBACTAM 3.375 GM in SODIUM CHLORIDE 0.9% MINIBAG 100 ML IV SCH ×4 (03:55→20:47)
[2018-09-26] MEDS: SODIUM CHLORIDE 0.9% 1,000 ML IV SCH ×3 (04:01→17:55)
--- NOTE | 2018-09-26 04:31 | XRAY Report ---
Reason: NGT placement Procedure Date: 09/26/2018 Accession Number: [id number] / [id number] Procedure: XR - Chest 1 View X-Ray CPT Code: 57691 FULL RESULT: EXAM: CHEST RADIOGRAPHY EXAM DATE: 09/26/2018 04:12 AM. CLINICAL HISTORY: NGT placement. COMPARISON: ABDOMEN ACUTE 09/25/2018 9:04 PM, ABDOMEN/PELVIS W/O 09/26/2018 1:55 AM. TECHNIQUE: 1 view. FINDINGS IMPRESSION: 1. Orogastric tube tip projects over the distal esophagus. Recommend advancement of 10 cm. 2. Multiple pulmonary nodules and masses within the left mid and lower lung region are again noted. 3. Moderate right lower hemithorax as well as right perihilar consolidation is again seen without significant change. Volume loss within the right hemithorax is relatively unchanged. 4. No definite evidence of a pneumothorax. 5. There is moderate enlargement of the cardiac silhouette. No overt CHF demonstrated. RADIA
[2018-09-26 05:33] LABS: BASOPHILS % (AUTO) 0.1 %; EOSINOPHILS % (AUTO) 0.3 %; HGB - HEMOGLOBIN 11.8 g/dL (14.0-18.0); LYMPHOCYTES # (AUTO) 0.3 10^3/uL (1.5-3.5); MEAN CORPUSCULAR HEMOGLOBIN 30.5 pg (27.0-31.0); MEAN CORPUSCULAR HGB CONC 33.7 g/dL (32.0-36.0); MEAN CORPUSCULAR VOLUME 90.3 fL (80.0-94.0); MEAN PLATELET VOLUME 8.6 fL (7.4-11.4); MONOCYTES # (AUTO) 0.5 10^3/uL (0.0-1.0); MONOCYTES % (AUTO) 4.9 %; NEUTROPHILS # (AUTO) 9.5 10^3/uL (1.5-6.6); NEUTROPHILS % (AUTO) 91.7 %; PLT - PLATELET COUNT 165 10^3/uL (130-450); RED BLOOD COUNT 3.86 10^6/uL (4.70-6.10); RED CELL DISTRIBUTION WIDTH 13.5 % (12.0-15.0); WHITE BLOOD COUNT 10.3 x10^3/uL (4.8-10.8)
[2018-09-26 05:42] LABS: CALCIUM 8.3 mg/dL (8.5-10.3); CREATININE 0.9 mg/dL (0.6-1.2)
--- NOTE | 2018-09-26 06:06 | HISTORY & PHYSICAL EXAMINATION ---
Chief Complaint - Chief Complaint Chief Complaint: persistent nausea and vomiting, abd pain History of Present Illness - Admitted From Admitted From:: [facility] ED - History Obtained From Records Reviewed: yes History obtained from: patient, spouse, ED staff Exam Limitations: persistent nause and vomiting - History of Present Illness HPI Comment/Other: Patient is a 62 y/o male who presented to the ED with persistent nausea and vomiting for the past 24 hours. He was taken to the OR here at [facility] on 09/24/18 for appendicitis and underwent an appendectomy. He was discharged home the same day on Augmentin to be taken for 9 days. However, since going home the patient has been nauseous and vomiting innumerable times. He has not had a bowel movement in at least 3 days and has not passed gas since surgery. His abdomen is very bloated with decreased bowel sound heard. He has a salivary gland cancer which is slow growing but has metastasized to the lung. He follows with [facility] and is on a Phase II trial medication. During my exam he was vomiting incessantly, this limited history taking. He denied chest pain or AYDEE. Work up in the ED included an abdominal plate and subsequently a CT of the abdomen/pelvis without contrast which showed dilated loops of bowel. As a result of his clinical presentation, he is being admitted for further treatment. History - Past Medical History Cardiovascular: reports: Hypertension Respiratory: reports: None Neuro: reports: None Endocrine/Autoimmune: reports: None GI: reports: Chronic constipation : reports: None HEENT: reports: Other (Salivary gland cancer with mets to lung) Psych: reports: None Musculoskeletal: reports: None Derm: reports: None MRSA Hx?: No Other Past Medical History: Had hep C , cured per patient. - Past Surgical History General: reports: Appendectomy Cardiovascular: reports: Other HEENT: reports: Other Other past surgical history: BOTS - Family & Social History Living arrangement: At home Living Situation: With spouse/s.o. Meds/Allgy - Home Medications Home Medications: Ambulatory Orders Medication Instructions Recorded Confirmed Bisacodyl Supp [Dulcolax Supp] 10 mg [place] DAILY PRN 09/24/18 09/24/18 Calcium Polycarbophil [Fiber-Lax] 1,875 mg PO DAILY 09/24/18 09/24/18 Ergocalciferol (Vitamin D2) 50 mcg PO DAILY 09/24/18 09/24/18 [Vitamin D2] Lisinopril 10 mg PO DAILY 09/24/18 09/24/18 Morphine Sulfate [Ms Contin] 0 mg PO Q8H 09/24/18 09/24/18 Naproxen Sodium [Aleve] 220 - 440 mg PO DAILY PRN 09/24/18 09/24/18 Polyethylene Glycol 3350 [Miralax] 17 gm PO DAILY PRN 09/24/18 09/24/18 Senna [Senokot] 8.6 mg PO DAILY 09/24/18 09/24/18 oxyCODONE [Roxicodone] 10 - 40 mg PO Q6H PRN 09/24/18 09/24/18 Acetaminophen [Tylenol] 650 mg PO Q4HR PRN tablet 09/25/18 Amox/Clav 875/125 [Augmentin] 1 each PO Q8HR 3 Days #9 tablet 09/25/18 HYDROcod/ACETAM 5/325 [[place] 5/325] 1 tab PO Q4HR PRN tablet 09/25/18 Polyethylene Glycol 3350 [Miralax] 17 gm PO DAILY packet 09/25/18 - Allergies Allergies/Adverse Reactions: Allergies Allergy/AdvReac Type Severity Reaction Status Date / Time No Known Drug Allergies Allergy Verified 09/24/18 10:59 Review of Systems - Constitutional Constitutional: reports: Fatigue, Poor appetite. denies: Fever, Chills - Eyes Eyes: denies: Pain, Blurred vision, Dipolpia - Ears, Nose & Throat Ears, Nose & Throat: denies: Vertigo, Nasal pain, Nasal discharge, Hoarseness - Cardiovascular Cariovascular: denies: Irregular heart rate, Chest pain, Edema, Lightheadedness, Syncope - Respiratory Respiratory: reports: Pleuritic pain. denies: Cough, Wheezing, Snoring, Hemoptysis, SOB at rest - Gastrointestinal Gastrointestinal: reports: Abdominal pain, Abdominal distention, Constipation, Nausea, Vomiting, Bile emesis, Bloating, Poor appetite. denies: Diarrhea - Genitourinary Genitourinary: reports: Dysuria. denies: Frequency, Urgency, Hematuria - Musculoskeletal Musculoskeletal: denies: Muscle pain, Back pain, Muscle aches, Stiffness - Integumentary Integumentary: denies: Rash, Pruritis, Lesions, Dryness - Neurological Neurological: denies: General weakness, Headache, Dizziness - Psychiatric Psychiatric: denies: Depression, Anxiety - Hematologic/Lymphatic Hematologic/Lymphatic: denies: Anemia, Bruising, Petechiae Prior Level of Functionality: Independent of activities of daily living Lives at home with Exam - Vital Signs Reviewed Vital Signs: Yes Vital Signs: Vital Signs x48h Temp Pulse Pulse Resp BP BP Pulse Ox 09/26/18 03:07 37.3 C 103 H 18 156/103 H 96 09/26/18 02:15 37.2 C 109 H 22 159/109 H 97 09/26/18 01:09 17 164/114 H 09/26/18 00:00 109 H 17 160/119 H 97 09/25/18 23:09 118 H 17 171/114 H 97 09/25/18 22:20 120 H 17 164/117 H 97 - Physical Exam General Appearance: positive: Alert, Moderate distress, Lethargic Eyes Bilateral: positive: Normal inspection, PERRL, EOMI, Conjunctivae nml, No scleral icterus ENT: positive: ENT inspection nml, Dry mucous membranes Neck: positive: Nml inspection, No JVD, Trachea midline Respiratory: positive: Chest non-tender, No respiratory distress, Breath sounds nml. negative: Wheezes, Rales, Rhonchi Cardiovascular: positive: Tachycardia Abdomen: positive: Tenderness, Abnml bowel sounds (decresed), Other (distended/ bloated abdomen. moderate tenderness to palpation) Back: positive: Nml inspection Skin: positive: Color nml, No rash, Warm Extremities: positive: Non-tender, Nml appearance, No pedal edema Neurologic/Psychiatric: positive: Oriented x3 Sepsis Event Note (H) - Evaluation Possible source of Sepsis: positive: GI tract/intra-abdominal - Sepsis Criteria Sepsis Criteria: Recorded Heart Rate greater than 90 bpm, WBC count greater than 12,000 or less than 4000 Conclusion/Plan - Problem List (1) Postoperative ileus Conclusion/Plan: Strict NPO. IV hydration with normal saline NG tube in place with 1500cc immediately out and significant immediate relief Will work on avoiding/ minimizing opiate use Ofirmev ordered for pain (2) Constipation Conclusion/Plan: Patient given relistor in the ED Minimize/ Avoid opiate use Qualifiers: Constipation type: drug induced constipation Qualified Code(s): K59.03 - Drug induced constipation (3) Appendicitis Conclusion/Plan: s/p appendectomy by Dr Bravo POD # 1. Zosyn ordered since patient unable to take po antibiotics Qualifiers: Appendicitis type: acute appendicitis Acute appendicitis type: with lo calized peritonitis Appendicitis gangrene presence: without gangrene Appendicitis perforation presence: without perforation Appendicitis abscess presence: without abscess Qualified Code(s): K35.30 - Acute appendicitis with localized peritonitis, without perforation or gangrene (4) Salivary gland cancer Conclusion/Plan: with mets to lungs Slow growing. Patient on a a New Phase II Med Follows with [facility] (5) Hypertension Conclusion/Plan: On lisinopril at home Will hold for now and Order labetalol prn for SBP> 160 Qualifiers: Hypertension type: essential hypertension Qualified Code(s): I10 - Essential (primary) hypertension - Lab Results Fish Bones: 09/26/18 05:10 09/26/18 05:10 Core Measures - Anticipated LOS I expect patient to be DC'd or transferred within 96 hours.: Yes - DVT/VTE - Prophylaxis VTE/DVT Device ordered at admit?: Yes VTE/DVT Prophylaxis med ordered at admit?: No
[2018-09-26] MEDS ORDERED: MORPHINE 2 MG/ML CARPUJECT IVP PRN (07:59)
--- NOTE | 2018-09-26 07:59 | ED Physician Documentation ---
ED Addendum - Addendum Addendum: 09/26/18 07:56 The patient had been given an enema but did not have any stool results from that. He was having a feeling of abdominal bloating. He tried to drink some of the mag citrate but states the abdominal bloating and some cramping increased and is feeling nauseous. He did have near emesis but did not vomit up per se. Reexamine of his abdomen shows diminished bowel sounds and a non-tense distention. He may have had an good element of constipation but he also has elements of postop ileus. I talked with the hospitalist about him and the patient will be brought into the hospital for further care and evaluation. The hospitalist did request a CT scan prior to admission.
[2018-09-26] MEDS: ACETAMINOPHEN 1,000 MG/100 ML 100 ML IV PRN (08:00)
--- NOTE | 2018-09-26 08:30 | PROVIDER PROGRESS NOTE ---
Subjective - Prog Note Date Prog Note Date: 09/26/18 Prog Note Time: 08:25 - Subjective Pt reports feeling: Worse (Had onset of N/V last night after discharge) Objective - Vital Signs/Intake & Output Vital Signs: Vital Signs x48h Temp Pulse Pulse Resp BP BP Pulse Ox 09/26/18 08:06 37.4 C 102 H 18 150/99 H 97 09/26/18 03:07 37.3 C 103 H 18 156/103 H 96 09/26/18 02:15 37.2 C 109 H 22 159/109 H 97 09/26/18 01:09 17 164/114 H Intake & Output: Intake & Output 09/23/18 09/24/18 09/25/18 09/26/18 23:59 23:59 23:59 23:59 Intake Total 1000 910 Output Total 100 Balance 900 910 - Objective General Appearance: positive: No acute distress Eyes Bilateral: positive: Normal inspection ENT: positive: ENT inspection nml Neck: positive: Nml inspection Respiratory: positive: Chest non-tender Abdomen: positive: Tenderness Back: positive: Nml inspection Skin: positive: Color nml Extremities: positive: Non-tender Neurologic/Psychiatric: positive: Oriented x3 - Lab Results Fish Bones: 09/26/18 05:10 09/26/18 05:10 Other Labs: Lab Results x24hrs 09/26/18 09/26/18 09/26/18 Range/Units 05:10 05:10 01:45 WBC 10.3 (4.8-10.8) x10^3/uL RBC 3.86 L (4.70-6.10) 10^6/uL Hgb 11.8 L (14.0-18.0) g/dL Hct 34.8 L (42.0-52.0) % MCV 90.3 (80.0-94.0) fL MCH 30.5 (27.0-31.0) pg MCHC 33.7 (32.0-36.0) g/dL RDW 13.5 (12.0-15.0) % Plt Count 165 (130-450) 10^3/uL MPV 8.6 (7.4-11.4) fL Neut # (Auto) 9.5 H (1.5-6.6) 10^3/uL Lymph # (Auto) 0.3 L (1.5-3.5) 10^3/uL [place] # (Auto) 0.5 (0.0-1.0) 10^3/uL Eos # (Auto) 0.0 (0.0-0.7) 10^3/uL Baso # (Auto) 0.0 (0.0-0.1) 10^3/uL Absolute Nucleated RBC 0.00 x10^3/uL Nucleated RBC % 0.0 /100WBC Sodium 139 (135-145) mmol/L Potassium 3.1 L (3.5-5.0) mmol/L Chloride 100 L (101-111) mmol/L Carbon Dioxide 26 (21-32) mmol/L Anion Gap 13.0 (6-13) BUN 23 H (6-20) mg/dL Creatinine 0.9 (0.6-1.2) mg/dL Estimated GFR (MDRD) 86 L (>89) Glucose 120 H (70-100) mg/dL Lactic Acid 0.9 (0.5-2.2) mmol/L Calcium 8.3 L (8.5-10.3) mg/dL Total Bilirubin (0.2-1.0) mg/dL AST (10-42) IU/L ALT (10-60) IU/L Alkaline Phosphatase (42-121) IU/L Total Protein (6.7-8.2) g/dL Albumin (3.2-5.5) g/dL Globulin (2.1-4.2) g/dL Albumin/Globulin Ratio (1.0-2.2) Lipase (22-51) U/L 09/25/18 09/25/18 Range/Units 21:28 21:28 WBC 12.9 H (4.8-10.8) x10^3/uL RBC 4.24 L (4.70-6.10) 10^6/uL Hgb 12.8 L (14.0-18.0) g/dL Hct 38.5 L (42.0-52.0) % MCV 90.8 (80.0-94.0) fL MCH 30.1 (27.0-31.0) pg MCHC 33.1 (32.0-36.0) g/dL RDW 13.4 (12.0-15.0) % Plt Count 173 (130-450) 10^3/uL MPV 8.7 (7.4-11.4) fL Neut # (Auto) 11.8 H (1.5-6.6) 10^3/uL Lymph # (Auto) 0.5 L (1.5-3.5) 10^3/uL [place] # (Auto) 0.6 (0.0-1.0) 10^3/uL Eos # (Auto) 0.0 (0.0-0.7) 10^3/uL Baso # (Auto) 0.0 (0.0-0.1) 10^3/uL Absolute Nucleated RBC 0.00 x10^3/uL Nucleated RBC % 0.0 /100WBC Sodium 133 L (135-145) mmol/L Potassium 3.6 (3.5-5.0) mmol/L Chloride 95 L (101-111) mmol/L Carbon Dioxide 26 (21-32) mmol/L Anion Gap 12.0 (6-13) BUN 19 (6-20) mg/dL Creatinine 0.9 (0.6-1.2) mg/dL Estimated GFR (MDRD) 86 L (>89) Glucose 114 H (70-100) mg/dL Lactic Acid (0.5-2.2) mmol/L Calcium 9.0 (8.5-10.3) mg/dL Total Bilirubin 0.5 (0.2-1.0) mg/dL AST 28 (10-42) IU/L ALT 24 (10-60) IU/L Alkaline Phosphatase 63 (42-121) IU/L Total Protein 8.4 H (6.7-8.2) g/dL Albumin 3.3 (3.2-5.5) g/dL Globulin 5.1 H (2.1-4.2) g/dL Albumin/Globulin Ratio 0.6 L (1.0-2.2) Lipase 24 (22-51) U/L Sepsis Event Note (H) - Evaluation Possible source of Sepsis: positive: GI tract/intra-abdominal - Sepsis Criteria Sepsis Criteria: Recorded Heart Rate greater than 90 bpm, WBC count greater than 12,000 or less than 4000 Assessment/Plan - Problem List (1) Abdominal pain Impression: Pt readmitted with worsening of chronic constipation/post-op ileus. Pt had a b adly perforated appendix, so not unexpected to have an ileus. Additionally, his chronic constipation is a contributing factor. Plan on continuing NGT until output decreases, then instituting a bowel regimen. Qualifiers: Abdominal location: lower abdomen, unspecified Qualified Code(s): R10.30 - Lower abdominal pain, unspecified
[2018-09-26] MEDS: POLYETHYLENE GLYCOL 3350 17 GM PACKET PO SCH (08:59)
[2018-09-26] MEDS ORDERED: METHYLNALTREXONE 12 MG/0.6 ML VIAL SUBQ SCH (09:00)
[2018-09-26] MEDS: MORPHINE 2 MG/ML CARPUJECT IVP PRN ×6 (11:25→22:25)
[2018-09-26] MEDS: POTASSIUM CHLOR 10 MEQ/100 ML 10 MEQ/100 ML BAG IV SCH ×3 (11:33→14:03)
[2018-09-26] MEDS: METHYLNALTREXONE 12 MG/0.6 ML VIAL SUBQ SCH (11:44)
[2018-09-26] MEDS: SODIUM CHLORIDE FLUSH 0.9% 10 ML SYRINGE IVP SCH ×2 (14:09→17:39)
[2018-09-26] MEDS: LABETALOL 20 MG/4 ML SYRINGE IVP PRN (16:01)
[2018-09-26] MEDS: SODIUM CHLORIDE FLUSH 0.9% 10 ML SYRINGE IVP PRN ×4 (16:05→22:25)
[2018-09-26] MEDS ORDERED: LIDOCAINE PATCH 5% TOP PRN (18:05)
[2018-09-26] MEDS ORDERED: MORPHINE 10 MG/ML VIAL IVP ONE (18:09)
[2018-09-27] MEDS ORDERED: fentaNYL 100 MCG/2 ML VIAL IVP SCH (00:09)
[2018-09-27] MEDS ORDERED: diphenhydrAMINE INJ 50 MG/ML VIAL IVP PRN (00:10)
[2018-09-27] MEDS: SODIUM CHLORIDE 0.9% 1,000 ML IV SCH ×2 (01:14→04:58)
[2018-09-27] MEDS: SODIUM CHLORIDE FLUSH 0.9% 10 ML SYRINGE IVP SCH ×3 (01:14→16:31)
[2018-09-27] MEDS: MORPHINE 2 MG/ML CARPUJECT IVP PRN (02:55)
[2018-09-27] MEDS: SODIUM CHLORIDE FLUSH 0.9% 10 ML SYRINGE IVP PRN ×2 (02:56→21:32)
[2018-09-27] MEDS: PIPERACILLIN/TAZOBACTAM 3.375 GM in SODIUM CHLORIDE 0.9% MINIBAG 100 ML IV SCH ×4 (03:04→21:19)
[2018-09-27] MEDS ORDERED: HYDROmorphone PCA 20MG/100ML IV PRN ×2 (03:34→10:03)
[2018-09-27] MEDS: HYDROmorphone 2 MG/ML VIAL IVP PRN ×3 (04:35→08:34)
[2018-09-27] MEDS ORDERED: HYDROmorphone 1 MG/ML CARPUJECT ONE (04:37)
[2018-09-27 04:53] LABS: BASOPHILS # (AUTO) 0.1 10^3/uL (0.0-0.1); BASOPHILS % (AUTO) 1.1 %; EOSINOPHILS # (AUTO) 0.3 10^3/uL (0.0-0.7); HGB - HEMOGLOBIN 12.2 g/dL (14.0-18.0); LYMPHOCYTES # (AUTO) 0.5 10^3/uL (1.5-3.5); LYMPHOCYTES % (AUTO) 5.6 %; MEAN CORPUSCULAR HEMOGLOBIN 30.7 pg (27.0-31.0); MEAN CORPUSCULAR HGB CONC 33.7 g/dL (32.0-36.0); MEAN PLATELET VOLUME 8.1 fL (7.4-11.4); MONOCYTES # (AUTO) 0.6 10^3/uL (0.0-1.0); MONOCYTES % (AUTO) 6.8 %; NEUTROPHILS % (AUTO) 83.5 %; PLT - PLATELET COUNT 169 10^3/uL (130-450); RED BLOOD COUNT 3.98 10^6/uL (4.70-6.10); RED CELL DISTRIBUTION WIDTH 13.3 % (12.0-15.0); WHITE BLOOD COUNT 8.4 x10^3/uL (4.8-10.8)
[2018-09-27 04:59] LABS: CREATININE 0.7 mg/dL (0.6-1.2)
[2018-09-27] MEDS: ACETAMINOPHEN 1,000 MG/100 ML 100 ML IV PRN (07:27)
[2018-09-27] MEDS: NS W/20 MEQ KCL 1,000 ML IV SCH ×2 (07:34→15:01)
[2018-09-27] MEDS: POTASSIUM CHLOR 10 MEQ/100 ML 10 MEQ/100 ML BAG IV SCH ×4 (07:38→11:03)
[2018-09-27] MEDS: POLYETHYLENE GLYCOL 3350 17 GM PACKET PO SCH (07:58)
[2018-09-27] MEDS: METHYLNALTREXONE 12 MG/0.6 ML VIAL SUBQ SCH (08:04)
[2018-09-27] MEDS: LABETALOL 20 MG/4 ML SYRINGE IVP PRN ×2 (08:13→21:29)
--- NOTE | 2018-09-27 09:04 | PROVIDER PROGRESS NOTE ---
Subjective - Prog Note Date Prog Note Date: 09/27/18 Prog Note Time: 09:02 - Subjective Pt reports feeling: Improved (Pt has no pain except for his chronic cancer pain. NGT output now clear. Feels less distension, nausea.) Objective - Vital Signs/Intake & Output Vital Signs: Vital Signs x48h Temp Pulse Resp BP Pulse Ox 09/27/18 08:54 83 156/105 H 09/27/18 08:00 36.3 C L 92 20 161/98 H 96 09/27/18 06:47 90 155/103 H 09/27/18 06:04 36.3 C L 91 19 161/105 H 96 Intake & Output: Intake & Output 09/24/18 09/25/18 09/26/18 09/27/18 23:59 23:59 23:59 23:59 Intake Total 1000 3525.833 2430 Output Total 100 1000 3000 Balance 900 2525.833 -570 - Objective General Appearance: positive: No acute distress Eyes Bilateral: positive: Normal inspection ENT: positive: ENT inspection nml Neck: positive: Nml inspection Respiratory: positive: Chest non-tender Abdomen: positive: Non-tender Back: positive: Nml inspection Skin: positive: Color nml Extremities: positive: Non-tender Neurologic/Psychiatric: positive: Oriented x3 - Lab Results Fish Bones: 09/27/18 04:35 09/27/18 04:35 Other Labs: Lab Results x24hrs 09/27/18 09/27/18 09/27/18 Range/Units 04:35 04:35 04:35 WBC 8.4 (4.8-10.8) x10^3/uL RBC 3.98 L (4.70-6.10) 10^6/uL Hgb 12.2 L (14.0-18.0) g/dL Hct 36.2 L (42.0-52.0) % MCV 91.0 (80.0-94.0) fL MCH 30.7 (27.0-31.0) pg MCHC 33.7 (32.0-36.0) g/dL RDW 13.3 (12.0-15.0) % Plt Count 169 (130-450) 10^3/uL MPV 8.1 (7.4-11.4) fL Neut # (Auto) 7.0 H (1.5-6.6) 10^3/uL Lymph # (Auto) 0.5 L (1.5-3.5) 10^3/uL [place] # (Auto) 0.6 (0.0-1.0) 10^3/uL Eos # (Auto) 0.3 (0.0-0.7) 10^3/uL Baso # (Auto) 0.1 (0.0-0.1) 10^3/uL Absolute Nucleated RBC 0.00 x10^3/uL Nucleated RBC % 0.0 /100WBC Sodium 138 (135-145) mmol/L Potassium 2.9 L (3.5-5.0) mmol/L Chloride 103 (101-111) mmol/L Carbon Dioxide 25 (21-32) mmol/L Anion Gap 10.0 (6-13) BUN 15 (6-20) mg/dL Creatinine 0.7 (0.6-1.2) mg/dL Estimated GFR (MDRD) 115 (>89) Glucose 107 H (70-100) mg/dL Calcium 8.0 L (8.5-10.3) mg/dL Magnesium 2.1 (1.7-2.8) mg/dL 09/26/18 Range/Units 05:00 WBC (4.8-10.8) x10^3/uL RBC (4.70-6.10) 10^6/uL Hgb (14.0-18.0) g/dL Hct (42.0-52.0) % MCV (80.0-94.0) fL MCH (27.0-31.0) pg MCHC (32.0-36.0) g/dL RDW (12.0-15.0) % Plt Count (130-450) 10^3/uL MPV (7.4-11.4) fL Neut # (Auto) (1.5-6.6) 10^3/uL Lymph # (Auto) (1.5-3.5) 10^3/uL [place] # (Auto) (0.0-1.0) 10^3/uL Eos # (Auto) (0.0-0.7) 10^3/uL Baso # (Auto) (0.0-0.1) 10^3/uL Absolute Nucleated RBC x10^3/uL Nucleated RBC % /100WBC Sodium (135-145) mmol/L Potassium (3.5-5.0) mmol/L Chloride (101-111) mmol/L Carbon Dioxide (21-32) mmol/L Anion Gap (6-13) BUN (6-20) mg/dL Creatinine (0.6-1.2) mg/dL Estimated GFR (MDRD) (>89) Glucose (70-100) mg/dL Calcium (8.5-10.3) mg/dL Magnesium 2.4 (1.7-2.8) mg/dL Sepsis Event Note (H) - Evaluation Possible source of Sepsis: positive: GI tract/intra-abdominal - Sepsis Criteria Sepsis Criteria: Recorded Heart Rate greater than 90 bpm, WBC count greater than 12,000 or less than 4000 Assessment/Plan - Problem List (1) Abdominal pain Impression: His ileus seems resolved. However, still has the chronic constipation. Plan to clamp NGT and continue expectant measures. Qualifiers: Abdominal location: lower abdomen, unspecified Qualified Code(s): R10.30 - Lower abdominal pain, unspecified
--- NOTE | 2018-09-27 13:25 | PROVIDER PROGRESS NOTE ---
Assessment/Plan - Problem List (1) Ileus following gastrointestinal surgery Assessment/Plan: He is POD #2 after Same Day Surgery done 09/25/18 for perforated appendix. His ng tube has stopped suctioning copious gastric fluids like the first 24 hours. He has had 2 BMs by his report and this was corroborated by the RN. Will pull out ng tube, start clear liquids and advance diet as tolerated. Surgeon is following along. (2) Perforated appendix Assessment/Plan: He is POD #2 after Same Day Surgery done 09/25/18 for perforated appendix. He was to take Augmentin for 3 days post-op, but got readmitted and was put on Zosyn, since he is npo. Will continue Zosyn while here and while diet will only be started today. Follow CBC. (3) Hypokalemia Assessment/Plan: Replace K by iv John. Follow BMP daily. (4) Pain of metastatic malignancy Assessment/Plan: He described to me his usual pain management: MS contin and Oxycodone for break through pain. He is now finally comfortable on his CONFERENCE TRANSLATOR pump, he states. I told him that when he can tolerate po diet, his po pain meds will be restarted, he is agreeable. 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 (6) Constipation Qualifiers: Constipation type: drug induced constipation Qualified Code(s): K59.03 - Drug induced constipation Assessment/Plan: Relistor has helped since admitted. - Current Meds Current Meds: Current Medications Generic Name Dose Route Start Last Admin Trade Name Freq PRN Reason Stop Dose Admin Diphenhydramine HCl 25 mg 09/27/18 00:10 09/27/18 01:13 Benadryl Inj IVP 25 mg QPM PRN Administration Insomnia Hydromorphone HCl 1 mg 09/27/18 04:31 09/27/18 08:34 Dilaudid (Vial) IVP 1 mg Q2H PRN Administration PAIN Hydromorphone HCl 20 mg 09/27/18 10:03 09/27/18 10:11 Dilaudid Forms Builder 20mg/100ml IV 20 mg PRN PRN Administration Severe Pain Protocol Acetaminophen 100 mls @ 400 mls/hr 09/26/18 02:20 09/27/18 07:42 Ofirmev IV Infused Q8HR PRN Infusion PAIN Piperacillin Sod/Tazobactam 100 mls @ 200 mls/hr 09/26/18 03:00 09/27/18 08:52 Sod 3.375 gm/ Sodium Chloride IV Infused Q6H KANDICE Infusion Potassium Chloride/Sodium Chloride 1,000 mls @ 125 mls/hr 09/27/18 07:00 09/27/18 07:34 Normal Saline 0.9% W/20 Meq Kcl IV 125 mls/hr .Q8H KANDICE Administration Labetalol HCl 10 mg 09/26/18 06:38 09/27/18 08:13 Trandate Syringe IVP 10 mg Q4H PRN Administration PER PHYSICIAN ORDER Lidocaine 1 patch 09/26/18 18:05 09/26/18 18:50 Lidoderm Patch TOP 1 patch DAILY PRN Administration PAIN Methylnaltrexone [place] 12 mg 09/26/18 10:30 09/27/18 08:04 Relistor SUBQ 12 mg DAILY KANDICE Administration Polyethylene Glycol 17 gm 09/26/18 09:00 09/27/18 07:58 Miralax PO Not Given DAILY KANDICE Sodium Chloride 10 ml 09/26/18 01:51 09/27/18 02:56 Normal Saline Flush 0.9% IVP 10 ml PRN PRN Administration NEEDED PER PROVIDER ORDERS Sodium Chloride 10 ml 09/26/18 09:00 09/27/18 08:16 Normal Saline Flush 0.9% IVP 10 ml 0100,0900,1700 KANDICE Administration - Lab Result Fish Bone Diagrams: 09/27/18 04:35 09/27/18 04:35 - Additional Planning My Orders: My Active Orders 09/26/18 18:05 Lidocaine Patch 5% [Lidoderm Patch] 1 patch TOP DAILY PRN 09/27/18 13:17 NG DC [NG Discontinuation] [RC] ONCE 09/27/18 Dinner Dysphagia Puree Diet [DIET] 09/27/18 Lunch Clear Liquid Diet [DIET] Subjective - Subjective Patient Reports: Feeling Better, Resting Comfortably Nursing Reports: Other (CONFERENCE TRANSLATOR pump was started after iv Dilaudid did not control his cancer pain. He had 2 BMs after the Relistor.) Objective Vital Signs: Vital Signs - 24 hr 09/26/18 09/26/18 09/26/18 15:38 16:00 16:07 Temperature 36.8 C Heart Rate [ 98 97 88 Brachial] Respiratory 20 Rate Blood Pressure 167/113 H 174/109 H 160/103 H [Right Brachial artery] O2 Saturation 98 09/26/18 09/26/18 09/26/18 16:12 16:17 16:29 Temperature Heart Rate [ 90 90 90 Brachial] Respiratory Rate Blood Pressure 156/106 H 165/106 H 134/86 H [Right Brachial artery] O2 Saturation 09/26/18 09/26/18 09/26/18 16:30 16:47 17:02 Temperature Heart Rate [ 86 89 89 Brachial] Respiratory Rate Blood Pressure 158/108 H 160/111 H 151/86 H [Right Brachial artery] O2 Saturation 09/26/18 09/26/18 09/26/18 17:18 17:19 17:30 Temperature Heart Rate [ 94 92 90 Brachial] Respiratory Rate Blood Pressure 159/105 H 154/110 H 165/108 H [Right Brachial artery] O2 Saturation 09/26/18 09/27/18 09/27/18 21:47 00:20 06:04 Temperature 36.9 C 36.6 C 36.3 C L Heart Rate [ 94 103 H 91 Brachial] Respiratory 20 20 19 Rate Blood Pressure 165/102 H 157/119 H 161/105 H [Right Brachial artery] O2 Saturation 96 97 96 09/27/18 09/27/18 09/27/18 06:47 08:00 08:54 Temperature 36.3 C L Heart Rate [ 90 92 83 Brachial] Respiratory 20 Rate Blood Pressure 155/103 H 161/98 H 156/105 H [Right Brachial artery] O2 Saturation 96 09/27/18 09/27/18 09/27/18 09:25 10:30 12:43 Temperature 36.8 C Heart Rate [ 87 87 Brachial] Respiratory 7 L 18 Rate Blood Pressure 153/104 H 158/114 H [Right Brachial artery] O2 Saturation 97 09/27/18 12:44 Temperature Heart Rate [ Brachial] Respiratory 16 Rate Blood Pressure [Right Brachial artery] O2 Saturation Oxygen O2 Source Room air I&O (Last 24 Hrs): Intake and Output Totals x24h 09/25/18 09/26/18 09/27/18 23:59 23:59 23:59 Intake Total 1000 3525.833 2730 Output Total 100 1000 3400 Balance 900 2525.833 -670 General: Alert, Oriented x3 HEENT: Mucous membr. moist/pink, Other (ng tube inplace, is clamped) Neck: Supple Neuro: Non Focal Cardiovascular: Regular rate Respiratory: No respiratory distress Abdomen: Soft, Other (Mild.ly distended, decreased bowel sounds) Extremities: No edema - Results Results: Laboratory Results WBC 8.4 x10^3/uL (4.8-10.8) 09/27/18 04:35 RBC 3.98 10^6/uL (4.70-6.10) L 09/27/18 04:35 Hgb 12.2 g/dL (14.0-18.0) L 09/27/18 04:35 Hct 36.2 % (42.0-52.0) L 09/27/18 04:35 MCV 91.0 fL (80.0-94.0) 09/27/18 04:35 MCH 30.7 pg (27.0-31.0) 09/27/18 04:35 MCHC 33.7 g/dL (32.0-36.0) 09/27/18 04:35 RDW 13.3 % (12.0-15.0) 09/27/18 04:35 Plt Count 169 10^3/uL (130-450) 09/27/18 04:35 MPV 8.1 fL (7.4-11.4) 09/27/18 04:35 Neut # (Auto) 7.0 10^3/uL (1.5-6.6) H 09/27/18 04:35 Lymph # (Auto) 0.5 10^3/uL (1.5-3.5) L 09/27/18 04:35 [place] # (Auto) 0.6 10^3/uL (0.0-1.0) 09/27/18 04:35 Eos # (Auto) 0.3 10^3/uL (0.0-0.7) 09/27/18 04:35 Baso # (Auto) 0.1 10^3/uL (0.0-0.1) 09/27/18 04:35 Absolute Nucleated RBC 0.00 x10^3/uL 09/27/18 04:35 Nucleated RBC % 0.0 /100WBC 09/27/18 04:35 Sodium 138 mmol/L (135-145) 09/27/18 04:35 Potassium 2.9 mmol/L (3.5-5.0) L 09/27/18 04:35 Chloride 103 mmol/L (101-111) 09/27/18 04:35 Carbon Dioxide 25 mmol/L (21-32) 09/27/18 04:35 Anion Gap 10.0 (6-13) 09/27/18 04:35 BUN 15 mg/dL (6-20) 09/27/18 04:35 Creatinine 0.7 mg/dL (0.6-1.2) 09/27/18 04:35 Estimated GFR (MDRD) 115 (>89) 09/27/18 04:35 Glucose 107 mg/dL (70-100) H 09/27/18 04:35 Lactic Acid 0.9 mmol/L (0.5-2.2) 09/26/18 01:45 Calcium 8.0 mg/dL (8.5-10.3) L 09/27/18 04:35 Magnesium 2.1 mg/dL (1.7-2.8) 09/27/18 04:35 Total Bilirubin 0.5 mg/dL (0.2-1.0) 09/25/18 21:28 AST 28 IU/L (10-42) 09/25/18 21:28 ALT 24 IU/L (10-60) 09/25/18 21:28 Alkaline Phosphatase 63 IU/L (42-121) 09/25/18 21:28 Total Protein 8.4 g/dL (6.7-8.2) H 09/25/18 21:28 Albumin 3.3 g/dL (3.2-5.5) 09/25/18 21:28 Globulin 5.1 g/dL (2.1-4.2) H 09/25/18 21:28 Albumin/Globulin Ratio 0.6 (1.0-2.2) L 09/25/18 21:28 Lipase 24 U/L (22-51) 09/25/18 21:28 Sepsis Event Note (H) - Evaluation Possible source of Sepsis: positive: GI tract/intra-abdominal - Sepsis Criteria Sepsis Criteria: Recorded Heart Rate greater than 90 bpm, WBC count greater than 12,000 or less than 4000
[2018-09-28] MEDS: NS W/20 MEQ KCL 1,000 ML IV SCH ×2 (00:24→09:19)
[2018-09-28] MEDS: SODIUM CHLORIDE FLUSH 0.9% 10 ML SYRINGE IVP SCH ×2 (00:28→09:32)
[2018-09-28] MEDS: LABETALOL 20 MG/4 ML SYRINGE IVP PRN (01:38)
[2018-09-28] MEDS: PIPERACILLIN/TAZOBACTAM 3.375 GM in SODIUM CHLORIDE 0.9% MINIBAG 100 ML IV SCH ×2 (03:05→09:41)
[2018-09-28 06:08] LABS: BASOPHILS % (AUTO) 0.5 %; LYMPHOCYTES % (AUTO) 5.1 %; MEAN CORPUSCULAR HEMOGLOBIN 30.1 pg (27.0-31.0); MEAN CORPUSCULAR HGB CONC 33.1 g/dL (32.0-36.0); MONOCYTES % (AUTO) 9.7 %; NEUTROPHILS % (AUTO) 79.7 %; PLT - PLATELET COUNT 196 10^3/uL (130-450); RED CELL DISTRIBUTION WIDTH 13.6 % (12.0-15.0); WHITE BLOOD COUNT 9.3 x10^3/uL (4.8-10.8)
[2018-09-28 06:20] LABS: CALCIUM 7.9 mg/dL (8.5-10.3); CREATININE 0.5 mg/dL (0.6-1.2)
[2018-09-28 06:23] LABS: ABNORMAL LYMPHS % (MANUAL) 0 %
[2018-09-28 06:43] LABS: BAND NEUTROPHILS % (MANUAL) 9 %; EOSINOPHILS # (MANUAL) 0.7 10^3/uL (0-0.7); LYMPHOCYTES # (MANUAL) 0.6 10^3/uL (1.5-3.5); LYMPHOCYTES % (MANUAL) 6 %; MONOCYTES # (MANUAL) 0.4 10^3/uL (0.0-1.0); NEUTROPHILS # (MANUAL) 7.6 10^3/uL (1.5-6.6); NEUTROPHILS % (MANUAL) 73 %
[2018-09-28 06:44] LABS: PLATELET ESTIMATE, MANUAL NORMAL (130-450,000) (NORMAL); RBC MORPHOLOGY (MULTIPLE) NORMAL APPEARANCE (NORMAL)
[2018-09-28] MEDS ORDERED: POTASSIUM CHLORIDE 20 MEQ/15 ML UDC PO SCH (09:00)
[2018-09-28] MEDS ORDERED: POTASSIUM CHLOR 10 MEQ/100 ML 10 MEQ/100 ML BAG IV SCH (09:00)
[2018-09-28] MEDS: METHYLNALTREXONE 12 MG/0.6 ML VIAL SUBQ SCH (09:05)
[2018-09-28] MEDS ORDERED: SENNA 8.6 MG TABLET PO SCH (10:00)
[2018-09-28] MEDS ORDERED: ACETAMINOPHEN 325 MG TABLET PO PRN (10:19)
[2018-09-28] MEDS ORDERED: oxyCODONE 5 MG TABLET PO PRN (10:19)
[2018-09-28] MEDS ORDERED: NAPROXEN 250 MG TABLET PO PRN (10:19)
[2018-09-28] MEDS ORDERED: BISACODYL 10 MG SUPP PR PRN (10:19)
[2018-09-28] MEDS ORDERED: HYDROcod/ACETAM 5/325 MG TABLET PO PRN (10:19)
[2018-09-28] MEDS ORDERED: MORPHINE ER 60 MG TABLET PO SCH (14:00)
[2018-09-28] MEDS ORDERED: AMOX/CLAV 875 MG/125 MG TABLET PO SCH (14:00)
[2018-09-28] MEDS ORDERED: MORPHINE SULFATE ER 30 MG TABLET PO SCH (14:00)
[2018-09-28] MEDS: DOCUSATE SODIUM 250 MG CAPSULE PO SCH ×2 (14:22→14:27)
--- NOTE | 2018-09-28 15:10 | Discharge Plan ---
Discharge Plan Disposition: 01 Home, Self Care Condition: Fair Diet: Soft Activity Restrictions: Activity as Tolerated Shower Restrictions: No Driving Restrictions: No Instruction Topics: Ileus Additional Instructions or Follow Up instructions: You were admitted after an ileus (bowel slow) down happened after your appendix surgery the day before. You may resume your usual medications. The antibiotic was finished while you were here (the second admission), so you don't need to take the Augmentin tablets. See your Provider in 1-2 weeks in follow up and if you have new problems come to the ER. No Smoking: If you smoke, Please STOP! Call for help.
[2018-09-28] MEDS ORDERED: POTASSIUM CHLORIDE 20 MEQ/15 ML UDC PO ONE (15:17)
[2018-09-28 15:35] VITALS: BP 153/107
[2018-09-28] MEDS ORDERED: MORPHINE ER 15 MG TABLET PO SCH (22:00)
[2018-09-29] MEDS ORDERED: LISINOPRIL 5 MG TABLET PO SCH (09:00)
[2018-09-29] MEDS ORDERED: CALCIUM POLYCARBOPHIL PO SCH (09:00)
[2018-09-29] MEDS ORDERED: POLYETHYLENE GLYCOL 3350 17 GM PACKET PO SCH ×2 (09:00)
[2018-09-29] MEDS ORDERED: CHOLECALCIFEROL 1,000 UNIT TABLET PO SCH (09:00)
--- NOTE | 2018-10-04 01:21 | DISCHARGE SUMMARY ---
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 The patient had developed persistent nausea and and vomiting several days ago and presented to emergency room, where he was diagnosed with appendicitis and taken to the OR for same-day surgery and underwent an appendectomy, on 09/24/2018. He was discharged home the same day, to take Augmentin t.i.d. for three days. Since returning home, he was nauseated and vomiting and presented back to the emergency room, complaining of incessant vomiting and no bowel movements or passing gas for the previous three days. Workup with abdominal x-ray and CT scan revealed dilated loops of bowel, and he was admitted for management of a postop ileus. HOSPITAL COURSE AND DISCHARGE DIAGNOSES 1. Ileus following gastrointestinal surgery. The patient required NG tube placement for suction of copious gastric fluids in the first 24 hours and was treated with antiemetics and pain medications. He was also started on Relistor and did start to have bowel movements by the following day. His NG tube was then discontinued, he was started on a liquid diet, which was then advanced. The surgeon followed along but had no new recommendations. 2. Perforated appendix. The patient was postop day #1 at presentation, after same-day surgery done 09/25/2018 for the perforated appendix. He was to take Augmentin, but none was staying down because of his repeat nausea and vomiting. He was put on Zosyn IV here, and he finished a 3-day course of that. He required medications for his mild postop pain at the laparoscopic site. 3. Hypokalemia. This was felt to be from several days of n.p.o. status and inadequate intake, it was replaced by IV riders and improved. 4. Pain of metastatic malignancy. The patient has metastases to the right lung. Apparently, there is pain in that area, which is where he also had a biopsy. The patient normally takes MS Contin and oxycodone for breakthrough pain. He said his pain was not adequately managed here with iv Morphine or Dilaudid iv pushes, and he requested and was started on a ENGINEERING GEOLOGIST pump to give him comfort. On the day of discharge, his morning exam revealed he was so obtunded, from the narcotic, that he could not carry on a conversation, but fell asleep in the middle of an answer and was not awake for starting his diet. The ENGINEERING GEOLOGIST pump was discontinued, and he was restarted back on his usual doses for pain control and was discharged later in the day when he was more awake. 5. Salivary gland cancer. He has metastasis to the right lung, which was biopsied in the past, and this was apparently where his pain is. 6. Constipation. Relistor helped during this admission, but this is a recurrent problem because of his narcotic use. LABS AND IMAGING: Reviewed and summarized above. ALLERGIES: NONE. MEDICATIONS AT DISCHARGE 1. MS Contin 90 mg p.o. q.8 hours. 2. Dulcolax suppository p.r.n. 3. Fiber-Lax tablet p.r.n. 4. Vitamin D2 capsule daily. 5. Lisinopril 10 mg daily. 6. Morphine ER 15 mg p.o. t.i.d. p.r.n. through pain. 7. Aleve tablet daily. 8. Oxycodone 10-40 mg p.o. q.6 hours p.r.n. breakthrough pain. 9. Senokot daily. 10. Tylenol p.r.n. CONDITION AT DISCHARGE: Stable. PHYSICAL EXAMINATION VITAL SIGNS: Blood pressure 150/100, heart rate 95-100 in sinus rhythm, afebrile, room air saturation 98%. HEENT: Unremarkable. NECK: Without JVD. CHEST: Clear. HEART: Sounds are normal. ABDOMEN: Soft. Decreased bowel sounds, nontender. No guarding or rebound. Clean laparoscopy site. EXTREMITIES; Legs without edema. NEUROLOGIC: Grossly intact after he awoke from his sedation, related to the ENGINEERING GEOLOGIST pump. FOLLOWUP: He was advised to see his PCP as previously scheduled, [facility] as previously scheduled, and to see the surgeon if the surgeon recommended it (at Dr. Bravo's clinic). CODE STATUS: FULL CODE. Time required to complete this entire discharge, chart review, dictation, orders: 30 minutes. TD: 10/03/2018 14:45 SANDY
== END 2018-09-28 16:25 | disposition home or self-care (01) | DRG 342 ==
LOC: ED 20:35 → MS2 09-26 01:51
PROVIDERS: ADMIT Internal Medicine; ATTEND Internal Medicine
PROC: 0DTJ4ZZ Resection of Appendix, Percutaneous Endoscopic Approach (ICD-10-PCS; principal; 2018-09-24)
DX: K91.30 Postprocedural intestinal obstruction, unspecified as to partial versus complete (principal); C78.01 Secondary malignant neoplasm of right lung; K35.31 Acute appendicitis with localized peritonitis and gangrene, without perforation; E87.6 Hypokalemia; K59.03 Drug induced constipation; T40.2X5D Adverse effect of other opioids, subsequent encounter; G89.3 Neoplasm related pain (acute) (chronic); D49.0 Neoplasm of unspecified behavior of digestive system; I10 Essential (primary) hypertension; Y83.6 Removal of other organ (partial) (total) as the cause of abnormal reaction of the patient, or of later complication, without mention of misadventure at the time of the procedure; Y92.234 Operating room of hospital as the place of occurrence of the external cause; Z79.1 Long term (current) use of non-steroidal anti-inflammatories (NSAID)
CPT/HCPCS: 36415; 44970; 71045; 74022; 74176; 80048; 80053; 81001; 83605; 83690; 83735; 85025; 96361; 96365; 96372; 96374; 96375; 99283; 99284; 99285; A9270; J0131; J1170; J1200; J1650; J2212; J7120